=== PATIENT | female | born 1990 | race Caucasian/White ===

== ENCOUNTER → 2017-03-20 | Outpatient (CLI) | payer BC ==
--- NOTE | 2017-03-20 14:51 | MM ---
Reason for exam: screening (asymptomatic). Baseline mammogram. History: Patient is nulliparous. Family history of breast cancer in mother at age 52. Took hormonal contraceptives beginning at age 17. Physical Findings: Nurse did not find any significant physical abnormalities on exam. MG Screening Mammo w CAD Bilateral CC and MLO view(s) were taken. The breast tissue is heterogeneously dense. This may lower the sensitivity of mammography. Superior central right focal asymmetry within the right breast is seen. These results were verbally communicated with the patient and result sheet given to the patient on 03/20/17. ASSESSMENT: Incomplete: need additional imaging evaluation, BI-RAD 0 RECOMMENDATION: Special view mammogram of the right breast. If lesion persists on supplemental views, image directed ultrasound is recommended. [facility] will attempt to contact patient to return for supplemental views and ultrasound if indicated. [facility]
--- NOTE | 2017-03-20 14:53 | MM ---
Reason for exam: additional evaluation requested from abnormal screening. History: Patient is nulliparous. Family history of breast cancer in mother at age 52. Took hormonal contraceptives beginning at age 17. Physical Findings: Breast exam preformed at baseline screening. MG Work Up Mamm w CAD RT Spot compression MLO and spot compression CC view(s) were taken of the right breast. Subtle focal asymmetry appears as fibroglandular tissue on additional imaging. These results were verbally communicated with the patient and result sheet given to the patient on 03/20/17. ASSESSMENT: Benign, BI-RAD 2 RECOMMENDATION: Routine screening mammogram of both breasts at age 38. (or sooner if clinically indicated) MTDD
== END | disposition home or self-care (01) ==
LOC: RADMAMWWP 13:05
PROVIDERS: ATTEND Family Medicine
DX: Z12.31 Encounter for screening mammogram for malignant neoplasm of breast (principal); R92.8 Other abnormal and inconclusive findings on diagnostic imaging of breast; Z80.3 Family history of malignant neoplasm of breast
CPT/HCPCS: G0202; G0206

== ENCOUNTER → 2019-01-18 | Outpatient (CLI) | payer BC | END | disposition home or self-care (01) | LOC: LABWHC1 08:44 | PROVIDERS: ATTEND Obstetrics & Gynecology | DX: Z34.01 Encounter for supervision of normal first pregnancy, first trimester (principal) | CPT/HCPCS: 36415; 84702; 86850; 86900; 86901 ==

== ENCOUNTER → 2019-05-28 | Outpatient (CLI) | payer BC ==
[2019-05-28 09:25] LABS: HCT 33.6 % (34.0-46.0); HGB 11.5 gm/dL (11.4-16.0); MCH 31.9 pg (25.0-35.0); MCHC 34.2 g/dL (31.0-37.0); MCV 93.5 fL (80.0-100.0); Mean Platelet Volume 7.5; Platelet Count 252 k/uL (150-450); RBC 3.59 m/uL (3.80-5.40); RDW 12.4 % (11.5-15.5); WBC 9.7 k/uL (3.8-10.6)
== END | disposition home or self-care (01) ==
LOC: LABWHC1 08:02
PROVIDERS: ATTEND Obstetrics & Gynecology
DX: Z34.02 Encounter for supervision of normal first pregnancy, second trimester (principal)
CPT/HCPCS: 36415; 82950; 85027

== ENCOUNTER 2019-08-23 19:34 | Inpatient (IN) | payer BC ==
[2019-08-23] MEDS ORDERED: TERBUTALINE 1 MG/ML VIAL SQ PRN (20:32)
[2019-08-23] MEDS ORDERED: METHYLERGONOVINE 0.2 MG/ML 1 ML AMP IM PRN (20:32)
[2019-08-23] MEDS ORDERED: CARBOPROST TROMETHAMINE 250 MCG/ML 1 ML AMP IM PRN (20:32)
[2019-08-23] MEDS ORDERED: OXYTOCIN 10 UNIT/ML 1 ML VIAL IM PRN (20:32)
[2019-08-23] MEDS ORDERED: LIDOCAINE 0.5% (PF) 5 MG/ML (50 ML SDV) SQ PRN (20:32)
--- NOTE | 2019-08-23 20:41 | P.HPOB ---
History of Present Illness H&P Date: 08/23/19 Chief Complaint: Leaking of fluid This patient is a pleasant 29-year-old 1 para 0 female estimated date of confinement 09/09/2019 estimated gestational age 37-4/7 weeks who presents to labor and delivery with complaint a gush of fluid at approximately 12:30 this morning. Patient's leaking throughout this afternoon and early evening contacted me complaining of leaking requested she come to labor and delivery for evaluation and she is found to be grossly ruptured. care has been uncomplicated. Review of Systems Genitourinary: Reports Menstruation: Reports amenorrhea Past Medical History Past Medical History: No Reported History History of Any Multi-Drug Resistant Organisms: None Reported Past Surgical History: No Surgical Hx Reported Past Anesthesia/Blood Transfusion Reactions: No Reported Reaction Past Psychological History: No Psychological Hx Reported Smoking Status: Never smoker Past Alcohol Use History: None Reported Past Drug Use History: None Reported Medications and Allergies Allergies Allergy/AdvReac Type Severity Reaction Status Date / Time blue dye Allergy Severe Anaphylaxis Verified 08/23/19 20:02 Exam Intake and Output 08/23/19 08/23/19 08/23/19 06:59 14:59 22:59 Other: Weight 84.822 kg - OBG Physical Exam Abdomen: bowel sounds normal, no diffuse tenderness, no bruit present, no guarding noted, no hepatomegaly, no splenomegaly, no mass Vulva: both: normal Vagina: no discharge Cervix: Cervix is 2 cm dilated 50% effaced -2 station with gross rupture membranes Uterus: enlarged (Fundal height is consistent with gestational age) Results blood work shows she is O positive, rubella immune, RPR nonreactive, hepatitis B negative, group B strep was negative, most recent ultrasound showed estimated weight to be 5 lbs. 9 oz. vertex presentation (August 05) Assessment and Plan Assessment: This is a pleasant 29-year-old 1 para 0 female estimated gestational age 37-4/7 weeks who presents to labor and delivery with leaking of fluid since approximately 12:30 earlier today. Patient's found to be grossly ruptured. Patient not having any contractions therefore we will augment/induced with Pitocin per protocol. At this point we anticipate vaginal delivery. (1) 37 weeks gestation of Current Visit: Yes Status: Acute Code(s): Z3A.37 - 37 WEEKS GESTATION OF SNOMED Code(s): 83875049 (2) Premature rupture of membranes Current Visit: Yes Status: Acute Code(s): O42.90 - SIS ROM, 7TH0 BETW RUPT & ONST LABR, UNSP WEEKS OF GEST SNOMED Code(s): 92623779
[2019-08-23] MEDS ORDERED: OXYTOCIN 30 UNITS/500 ML NS 30 UNIT in SALINE 1 500ML.BAG IV SCH (20:45)
[2019-08-23] MEDS ORDERED: LACTATED RINGERS 1,000 ML IV SCH (20:45)
[2019-08-23 23:31] LABS: Basophils # (A) 0.1 k/uL (0-0.2); Basophils % (A) 0 %; Eosinophils % (A) 0 %; HCT 35.8 % (34.0-46.0); HGB 11.9 gm/dL (11.4-16.0); Lymphocytes # (A) 2.2 k/uL (1.0-4.8); Lymphocytes % (A) 16 %; MCH 30.6 pg (25.0-35.0); MCHC 33.2 g/dL (31.0-37.0); Mean Platelet Volume 8.7; Monocytes # (A) 0.5 k/uL (0-1.0); Monocytes % (A) 3 %; Neutrophils # (A) 10.6 k/uL (1.3-7.7); Neutrophils % (A) 79 %; Platelet Count 293 k/uL (150-450); RBC 3.89 m/uL (3.80-5.40); RDW 12.8 % (11.5-15.5); WBC 13.4 k/uL (3.8-10.6)
[2019-08-23] MEDS ORDERED: SODIUM CHLORIDE 0.9% 100 ML BAG ONE (23:39)
[2019-08-23] MEDS ORDERED: fentaNYL (PF) 50 MCG/ML 5 ML AMP ONE (23:39)
[2019-08-23] MEDS ORDERED: ROPIVACAINE 5MG/ML 20ML VIAL ONE (23:39)
[2019-08-24] MEDS ORDERED: AMPICILLIN 2,000 MG in SODIUM CHLORIDE 0.9% 100 ML IVPB ONE (01:00)
[2019-08-24] MEDS ORDERED: CITRIC ACID-SODIUM CITRATE 15 ML CUP PO ONE (01:31)
[2019-08-24] MEDS ORDERED: KETOROLAC 30 MG/ML 1 ML VIAL ONE (01:38)
[2019-08-24] MEDS ORDERED: MORPHINE SULFATE (PF) 0.3 MG/0.3 ML SYR ONE (01:38)
[2019-08-24] MEDS ORDERED: OXYTOCIN 10 UNIT/ML 1 ML VIAL ONE (01:38)
[2019-08-24] MEDS ORDERED: ONDANSETRON 4 MG/2 ML VIAL ONE (01:38)
[2019-08-24] MEDS ORDERED: ceFAZolin 1,000 MG VIAL ONE (01:38)
--- NOTE | 2019-08-24 02:31 | P.OP ---
Date of Procedure: 08/24/19 Preoperative Diagnosis: #1: 37-4/7 week . #2: Premature rupture membranes. #3: Nonreassuring heart tones remote from delivery Postoperative Diagnosis: #1: Same. #2: Clinically partial abruption Procedure(s) Performed: Emergent low transverse section Anesthesia: spinal Surgeon: Riki Renteria Farmhand #1: Josiane Broderick Estimated Blood Loss (ml): 600 Pathology: other (Placenta) Condition: stable Disposition: floor Indications for Procedure: Please see dictated H&P for intimate details of this patient's admission. Brief summary this is a pleasant 29-year-old 1 para 0 female 37-4/7 weeks gestation admitted to labor and delivery with spontaneous rupture membranes earlier today. On admission patient is 2 cm dilated has Pitocin augmentation of labor. Patient begins having some repetitive late decelerations and some vaginal bleeding at this time is felt that we needed to proceed with immediate delivery by section. Patient does understand the surgery and risks and risks of infection, bleeding, possible injury bowel, bladder, vessels, and/or other organs. All the patient's questions are answered written consent is obtained Operative Findings: A vigorous viable male Apgars 9 and 9 delivery time is 0153 hours. Nuchal cord 1. There were small clots in the uterus consistent with probable partial abruption Description of Procedure: This patient has a Gurrola catheter tip placed to straight drain. She is subsequently taken to the operating room where the epidural is dosed up for sufficient level of surgery. With an adequate level of anesthesia she has abdominal prep and drape. Scalpels taken Pfannenstiel skin incision is made. A second scalpel is taken down the fascia the fascia scored with a knife. Fascial incision extended bilaterally using the Hoff scissors. Fascia is dissected off the rectus muscles sharply. Rectus muscles are the peritoneum identified and entered sharply. Bladder blade is then placed. Bladder peritoneum was then taken down sharply. Scalpels and taken low transverse uterine incision is made. Using a hemostat I enter the uterine cavity bluntly. Uterine incision extended bluntly. 's head is then guided through the incision with fundal pressure. Mouth and nares are bulb suctioned there is a loose nuchal cord which is reduced. With fundal pressure we then have deliver the rest this 's body. This is a vigorous viable male Apgars are 9 and 9 delivery time is 0153 hours. After delivery of the the umbilical cord is doubly clamped and cut appears to be trivascular. The is handed off to the nurses in attendance. The placenta is then manually extracted intact. After the placenta is removed, there several's approximately quarter- sized dark clots consistent with probable partial abruption. Uterus is free of all debris. Uterus is externalized. Uterine incision then closed using 0 Vicryl running locked fashion 2 layers excellent hemostasis is noted. Bladder peritoneum was then reapproximated using a 3-0 Vicryl. Excess fluid is removed from the abdomen and pelvis. Uterus placed back in the abdomen. Parietal peritoneum closed using a 3-0 Vicryl running fashion. Rectus muscles were occiput using 0 Vicryl interrupted fashion. Fascia is then closed using 0 PDS. Fascial incision is intact and hemostatic. Subcutaneous tissues and closed using 3-0 Vicryl. Skin is and closed using jennifer. All counts are correct 3. There are no complications. Infant and mother are taken of birthing suite in satisfactory condition.
[2019-08-24] MEDS ORDERED: diphenhydrAMINE 25 MG CAP PO PRN (02:32)
[2019-08-24] MEDS ORDERED: LANOLIN CREAM 5 GM TUBE TOPICAL PRN (02:32)
[2019-08-24] MEDS ORDERED: ONDANSETRON 4 MG/2 ML VIAL IVP PRN (02:32)
[2019-08-24] MEDS ORDERED: diphenhydrAMINE 50 MG/ML 1 ML VIAL IVP PRN (02:32)
[2019-08-24] MEDS ORDERED: HYDROcodone/APAP 5-325MG 1 EACH TAB PO PRN (02:32)
[2019-08-24] MEDS ORDERED: SIMETHICONE 80 MG CHEWABLE PO PRN (02:32)
[2019-08-24] MEDS ORDERED: METOCLOPRAMIDE 5 MG/ML 2 ML VIAL IVP PRN (02:32)
[2019-08-24] MEDS ORDERED: NALOXONE 0.4 MG/ML 1 ML VIAL IV PRN (02:32)
[2019-08-24] MEDS ORDERED: ZOLPIDEM 5 MG TAB PO PRN (02:32)
--- NOTE | 2019-08-24 02:36 | P.MSEPDOC ---
Presenting Problems - Arrival Data Date of Arrival on Unit: 08/23/19 Time of Arrival on Unit: 19:45 Mode of Transport: Ambulatory - Complaint OB-Reason for Admission/Chief Complaint: Rule Out SROM Comment: Pt walked in with complaints of rupture of membranes. Medical History - Information : 1 Para: 0 Term: 0 : 0 Abortions: Spontaneous or Elective: 0 Number of Living Children: 0 - Gestational Age Gestational Age by HIEU (wks/days): 37 Weeks and 4 Days Review of Systems - Review of Systems Constitutional: No problems Breast: No problems ENT: No problems Cardiovascular: No problems Respiratory: No problems Gastrointestinal: No problems Genitourinary: No problems Musculoskeletal: No problems Neurological: No problems Skin: No problems Vital Signs - Temperature Temperature: 98.6 F Temperature Source: Oral - Pulse Pulse Oximetery Pulse Rate: 80 Pulse Assessment Method: Pulse Oximetry - Respirations Respiratory Rate: 18 Oxygen Delivery Method: Room Air - Blood Pressure Right Arm Blood Pressure: 119/88 Blood Pressure Mean: 98 Blood Pressure Source: Automatic Cuff Medical Screen Scoring (Pre) - Cervical Exam Dilation: 1-3 cm = 1 Effacement: More than 50% = 2 Membranes: Ruptured = 3 - Uterine Contractions Frequency: N/A Duration: N/A Intensity: N/A - Maternal Vital Signs Maternal Temperature: N/A Maternal Blood Pressure: N/A Signs of Preeclampsia: N/A Maternal Respirations: N/A - Maternal Trauma Maternal Trauma: N/A - Assessment - Baby A Baseline FHR: 135 Heart Rate - NICHD Category: Category I (Normal) = 0 NST: Reactive Position: N/A Station: N/A - Total Score - Baby A Total Score - Baby A: 6 - Total Score - Baby B Total Score - Baby B: 6 - Total Score - Baby C Total Score - Baby C: 6 - Level of Risk - Baby A Level of Risk - Baby A: Medium (6-9) - Level of Risk - Baby B Level of Risk - Baby B: Medium (6-9) - Level of Risk - Baby C Level of Risk - Baby C: Medium (6-9) Physician Notification (Pre) - Physician Notified Physician Notified Date: 08/23/19 Physician Notified Time: 20:00 New Order Received: Yes - Notification Comment Comment: Orders to admit pt for labor and begin pitocin. Disposition - Disposition OB Disposition: Admit Transferred to:: suite 9 I agree with the RN Medical Screening Exam: Yes Risk & Benefit of care provided described in d/c instruction: Yes Diagnosis: ENCOUNTER FOR FULL-TERM UNCOMPLICATED DELIVERY
[2019-08-24] MEDS ORDERED: LACTATED RINGERS 1,000 ML IV SCH (02:45)
[2019-08-24] MEDS ORDERED: OXYTOCIN 20 UNITS/1000 ML NS 1,000 ML IV SCH (02:45)
[2019-08-24] MEDS ORDERED: MORPHINE SULFATE 2 MG/ML SYRINGE IVP PRN (02:51)
[2019-08-24] MEDS ORDERED: AMPICILLIN 1,000 MG in SODIUM CHLORIDE 0.9% 50 ML IVPB SCH (05:00)
[2019-08-24] MEDS: KETOROLAC 30 MG/ML 1 ML VIAL IVP PRN ×3 (06:30→22:52)
--- NOTE | 2019-08-24 07:52 | P.PN ---
Progress Note - Text Anesthesia POD 1 0720. Patient is status post section under spinal anesthesia with intra-thecal preservative free morphine 300 g. Mild pruritus, excellent post-op analgesia, and no headache or other complication.
[2019-08-24] MEDS: SENNOSIDES-DOCUSATE SODIUM 1 EACH TAB PO SCH ×2 (08:48→21:01)
[2019-08-25] MEDS: IBUPROFEN 600 MG TAB PO PRN ×3 (06:09→20:38)
[2019-08-25 07:59] LABS: Basophils % (A) 0 %; Eosinophils % (A) 0 %; HCT 29.8 % (34.0-46.0); HGB 10.1 gm/dL (11.4-16.0); Lymphocytes # (A) 1.3 k/uL (1.0-4.8); Lymphocytes % (A) 16 %; MCH 30.9 pg (25.0-35.0); MCHC 33.8 g/dL (31.0-37.0); MCV 91.4 fL (80.0-100.0); Mean Platelet Volume 8.4; Monocytes # (A) 0.4 k/uL (0-1.0); Monocytes % (A) 5 %; Neutrophils # (A) 6.5 k/uL (1.3-7.7); Neutrophils % (A) 78 %; Platelet Count 246 k/uL (150-450); RBC 3.26 m/uL (3.80-5.40); RDW 12.7 % (11.5-15.5); WBC 8.4 k/uL (3.8-10.6)
--- NOTE | 2019-08-25 09:03 | P.PNOBGPC ---
Subjective - Subjective Principal diagnosis: Status post primary section postoperative day #1 Interval history: Patient is doing well. She is passing some flatus but no bowel movement yet. She is urinating without difficulty. Her pain is fairly well controlled. Baby did get transfer to level I nursery this morning due to some jaundice issues. Patient reports: Reports appetite normal, Reports voiding normally, Reports pain well controlled, Reports ambulating normally [place]: other (In level I nursery) Objective - Vital Signs Latest vital signs: Vital Signs Temp Pulse Resp BP Pulse Ox 08/25/19 08:00 98.2 F 102 H 16 123/70 08/24/19 23:55 98.2 F 94 16 121/67 98 08/24/19 22:00 16 08/24/19 20:00 98.2 F 89 16 122/76 98 08/24/19 19:00 16 99 08/24/19 17:00 16 99 08/24/19 16:00 98 F 87 18 117/68 99 08/24/19 15:00 16 99 08/24/19 13:00 16 98 08/24/19 12:00 98.4 F 83 16 115/70 98 08/24/19 11:00 16 98 Intake and Output 08/24/19 08/25/19 08/25/19 22:59 06:59 14:59 Intake Total 100 Output Total 450 525 Balance -350 -525 Intake: Intake, IV Titration 100 Amount ceFAZolin 2 gm In Sodium 100 Chloride 0.9% 50 ml @ 100 mls/hr IVPB Q8H [facility] Rx#: [id number] Output: Urine 450 525 Other: # Voids 1 - Exam Extremities: Present: normal. Absent: tenderness, edema Abdomen: Present: normal appearance, soft (Positive bowel sounds 4). Absent: distention, tenderness Incision: Present: normal, dry, intact. Absent: erythematous Uterus: Present: normal, firm. Absent: tenderness - Labs Labs: Abnormal Lab Results - Last 24 Hours (Table) 08/25/19 Range/Units 06:52 RBC 3.26 L (3.80-5.40) m/uL Hgb 10.1 L (11.4-16.0) gm/dL Hct 29.8 L (34.0-46.0) % Assessment and Plan Assessment: Status post primary section postoperative day #1 Plan: Will continue with postoperative and care. Encouraged ambulation. Advance diet as tolerated.
[2019-08-25] MEDS: ACETAMINOPHEN TAB 325 MG TAB PO PRN (15:58)
[2019-08-25] MEDS: SENNOSIDES-DOCUSATE SODIUM 1 EACH TAB PO SCH ×2 (18:43→20:40)
[2019-08-26] MEDS: ACETAMINOPHEN TAB 325 MG TAB PO PRN ×3 (00:57→19:45)
[2019-08-26] MEDS: IBUPROFEN 600 MG TAB PO PRN ×2 (06:47→15:48)
[2019-08-26] MEDS: SENNOSIDES-DOCUSATE SODIUM 1 EACH TAB PO SCH ×2 (07:37→20:16)
[2019-08-27] MEDS: IBUPROFEN 600 MG TAB PO PRN ×3 (00:56→16:16)
[2019-08-27] MEDS: ACETAMINOPHEN TAB 325 MG TAB PO PRN (06:12)
[2019-08-27 08:39] VITALS: RESP 16
[2019-08-27] MEDS: SENNOSIDES-DOCUSATE SODIUM 1 EACH TAB PO SCH (15:29)
[2019-08-27 17:07] VITALS: BP 130/69; PULSE 77; TEMP 98
--- NOTE | 2019-08-28 08:01 | P.PNOBGPC ---
Subjective - Subjective Principal diagnosis: Status post primary low transverse postop day #2 Interval history: Patient seen and examined. Denies nausea, vomiting, chest pain, shortness of breath or calf pain. Her pain is well-controlled, she is passing flatus and tolerating regular diet. Her baby was in the nursery with jaundice and she will likely stay in the hospital until tomorrow for this reason. Patient reports: Reports appetite normal, Reports voiding normally, Reports pain well controlled, Reports ambulating normally Objective - Vital Signs Latest vital signs: Vital Signs Temp Pulse Resp BP 08/27/19 16:00 98.0 F 77 16 130/69 08/27/19 08:38 97.8 F 86 16 109/68 - Exam Lungs: bilateral: normal Chest: Normal S1, Normal S2 Extremities: Present: normal Abdomen: Present: normal appearance, soft. Absent: distention, tenderness Incision: Present: normal, dry, intact Uterus: Present: normal, firm Assessment and Plan (1) Status post primary low transverse section Status: Acute Code(s): Z98.891 - HISTORY OF UTERINE SCAR FROM PREVIOUS SURGERY SNOMED Code(s): 607165950 Plan: 1. Increase ambulation 2. Continue postoperative care
--- NOTE | 2019-08-28 08:02 | P.DS ---
Providers Date of admission: 08/23/19 20:09 Expected date of discharge: 08/27/19 Attending physician: Riki Renteria Primary care physician: Stated None - Discharge Diagnosis(es) (1) Status post primary low transverse section Status: Acute Hospital Course: Patient presented for spontaneous rupture of membranes. She underwent a primary low transverse , please dictation a section for details on this. Postoperatively her course was uncomplicated. She is ambulating voiding without difficulty, passing flatus, tolerating regular diet. She'll be discharg ed home postoperative day #3 in stable condition to follow-up with Dr. Renteria in one week. Patient Condition at Discharge: Good Plan - Discharge Summary New Discharge Prescriptions: New Ibuprofen [Motrin] 600 mg PO Q6HR PRN #40 tab PRN Reason: Mild Pain Or Fever >= 100.5 HYDROcodone/APAP 5-325MG [[place] 5-325] 1 each PO Q4HR PRN #18 tab PRN Reason: Moderate Pain Discharge Medication List HYDROcodone/APAP 5-325MG [[place] 5-325] 1 each PO Q4HR PRN #18 tab 08/24/19 [Rx] Ibuprofen [Motrin] 600 mg PO Q6HR PRN #40 tab 08/24/19 [Rx] Follow up Appointment(s)/Referral(s): Riki Renteria MD [STAFF PHYSICIAN] - 6 Weeks (Also please see me in 1 week for an incision check ) Patient Instructions/Handouts: (DC) Activity/Diet/Wound Care/Special Instructions: No heavy lifting or strenuous activity for 6 weeks. Please call if any fever, chills, excessive vaginal bleeding, and/or abdominal pain. Discharge Disposition: HOME SELF-CARE
== END 2019-08-27 16:39 | disposition home or self-care (01) | DRG 786 ==
LOC: FBPOP 19:34 → 4FBP 20:09
PROVIDERS: ADMIT Obstetrics & Gynecology; ATTEND Obstetrics & Gynecology
PROC: 3E033VJ Introduction of Other Hormone into Peripheral Vein, Percutaneous Approach (ICD-10-PCS; 2019-08-23)
PROC: 10D00Z1 Extraction of Products of Conception, Low, Open Approach (ICD-10-PCS; principal; 2019-08-24 01:40)
DX: O42.92 Full-term premature rupture of membranes, unspecified as to length of time between rupture and onset of labor (principal); O45.93 Premature separation of placenta, unspecified, third trimester; O69.81X0 Labor and delivery complicated by cord around neck, without compression, not applicable or unspecified; O76 Abnormality in fetal heart rate and rhythm complicating labor and delivery; Z37.0 Single live birth; Z3A.37 37 weeks gestation of pregnancy
CPT/HCPCS: 85025; 86850; 86900; 86901; 88307

== ENCOUNTER → 2021-09-20 | Outpatient (CLI) | payer OTHER ==
[2021-09-20 14:54] LABS: Basophils # (A) 0.04 X 10*3/uL (0.00-0.10); Basophils % (A) 0.6 %; Eosinophils # (A) 0.05 X 10*3/uL (0.04-0.35); Eosinophils % (A) 0.7 %; HCT 36.4 % (37.2-46.3); HGB 12.5 g/dL (12.0-15.0); Immature Grans, Automated 0.3 %; Lymphocytes # (A) 2.04 X 10*3/uL (0.90-5.00); Lymphocytes % (A) 29.3 %; MCH 30.6 pg (27.0-32.0); MCHC 34.3 g/dL (32.0-37.0); MCV 89.2 fL (80.0-97.0); Mean Platelet Volume 10.9 fL (9.5-12.2); Monocytes # (A) 0.61 X 10*3/uL (0.20-1.00); Monocytes % (A) 8.8 %; NRBC Per 100 WBC 0 /100 WBCS (0.0-0.0); Neutrophils % (A) 60.3 %; Platelet Count 278 X 10*3/uL (140-440); RBC 4.08 X 10*6/uL (4.10-5.20); RDW 12.5 % (11.5-14.5); WBC 6.96 X 10*3/uL (4.50-10.00)
[2021-09-20 16:09] LABS: African American GFR (CKD) 135.5 (60.0-200.0); Albumin 4.7 g/dL (3.8-4.9); Albumin/Globulin Ratio 1.98 (1.60-3.17); Anion Gap 12.6 mmol/L (10.00-18.00); BUN/Creat Ratio 13.59 Ratio (12.00-20.00); Blood Urea Nitrogen 8.8 mg/dL (9.0-27.0); C Reactive Protein 0.4 mg/dL (0.00-0.80); Calcium 9.5 mg/dL (8.7-10.3); Carbon Dioxide 23.3 mmol/L (20.0-27.5); Globulin 2.4 g/dL (1.6-3.3); Non-African American GFR(CKD) 116.9 (60.0-200.0); Potassium 4.2 mmol/L (3.5-5.5); Total Bilirubin 0.7 mg/dL (0.30-1.20); Total Protein 7.1 g/dL (6.2-8.2)
[2021-09-20 16:31] LABS: Erythrocyte Sedimentation Rate 7 mm/Hr (0-20)
== END | disposition home or self-care (01) ==
LOC: LABWHC1 10:32
PROVIDERS: ATTEND Internal Medicine
DX: L50.9 Urticaria, unspecified (principal)
CPT/HCPCS: 36415; 80053; 84443; 85025; 85652; 86038; 86140; 86160

== ENCOUNTER 2021-10-28 20:59 | Observation (INO) | payer OTHER ==
[2021-10-28] MEDS ORDERED: PANTOPRAZOLE 40 MG/10 ML VIAL IVP STA (22:04)
[2021-10-28] MEDS ORDERED: SODIUM CHLORIDE 0.9% 1,000 ML IV STA ×2 (22:04)
[2021-10-28] MEDS ORDERED: ONDANSETRON 4 MG/2 ML VIAL IVP STA (22:04)
[2021-10-28] MEDS ORDERED: SODIUM CHLORIDE 0.9% 500 ML 500 ML IV STA (22:04)
[2021-10-28 22:33] LABS: Basophils # (A) 0.1 k/uL (0-0.2); Basophils % (A) 1 %; Eosinophils # (A) 0.2 k/uL (0-0.7); Eosinophils % (A) 2 %; HCT 42.4 % (34.0-46.0); HGB 15.3 gm/dL (11.4-16.0); Hyperchromasia Slight; Lymphocytes # (A) 2.3 k/uL (1.0-4.8); Lymphocytes % (A) 22 %; MCH 31.1 pg (25.0-35.0); MCV 86.2 fL (80.0-100.0); Mean Platelet Volume 7.7; Monocytes # (A) 0.7 k/uL (0-1.0); Monocytes % (A) 7 %; Neutrophils # (A) 6.8 k/uL (1.3-7.7); Neutrophils % (A) 66 %; Platelet Count 355 k/uL (150-450); RBC 4.91 m/uL (3.80-5.40); RDW 11.9 % (11.5-15.5); WBC 10.4 k/uL (3.8-10.6)
--- NOTE | 2021-10-28 22:42 | ED ---
Nausea/Vomiting/Diarrhea HPI - General Chief complaint: Nausea/Vomiting/Diarrhea Stated complaint: Vomiting, Nausea Time Seen by Provider: 10/28/21 22:03 Source: patient, RN notes reviewed, old records reviewed Mode of arrival: ambulatory Limitations: no limitations - History of Present Illness Initial comments: This is a 31-year-old female to the ER for evaluation. Patient presents today for evaluation regards to significant nausea vomiting first 5 days. Persistent. Patient was also has nausea and vomiting but has been persistent for 5 days she's also having a epigastric and right upper quadrant abdominal pain no significant other medical history takes no medications. Patient is without fever she did also suffer from diarrhea feels lightheaded dizzy and weak. Nothing is improving the symptoms, nothing also appears make him worse. Patient is unable to eat or drink MD complaint: nausea, vomiting, diarrhea, abdominal pain -: hour(s) Description of Vomiting: food contents Description of Diarrhea: water Associated Abdominal Pain: Yes Location: diffuse Radiation: none Severity: moderate Severity scale (1-10): 4 Quality: cramping, stabbing Consistency: constant Improves with: none Worsens with: none Associated Symptoms: loss of appetite, nausea/vomiting - Related Data Home Medications Medication Instructions Recorded Confirmed No Known Home Medications 10/28/21 10/28/21 Allergies Allergy/AdvReac Type Severity Reaction Status Date / Time No Known Allergies Allergy Verified 10/28/21 22:18 Review of Systems ROS Statement: Those systems with pertinent positive or pertinent negative responses have been documented in the HPI. ROS Other: All systems not noted in ROS Statement are negative. Past Medical History Past Medical History: No Reported History History of Any Multi-Drug Resistant Organisms: None Reported Past Surgical History: No Surgical Hx Reported Past Anesthesia/Blood Transfusion Reactions: No Reported Reaction Past Psychological History: No Psychological Hx Reported Smoking Status: Current every day smoker Past Alcohol Use History: Occasional Past Drug Use History: Marijuana - Past Family History Father History Unknown: Yes Family Medical History: Diabetes Mellitus Mother History Unknown: Yes Family Medical History: Cancer Additional Family Medical History / Comment(s): from breast cancer General Exam Limitations: no limitations General appearance: alert, in no apparent distress, anxious Head exam: Present: atraumatic, normocephalic, normal inspection Eye exam: Present: normal appearance, PERRL, EOMI. Absent: scleral icterus, conjunctival injection, periorbital swelling ENT exam: Present: normal exam, mucous membranes dry Neck exam: Present: normal inspection. Absent: tenderness, meningismus, lymphadenopathy Respiratory exam: Present: normal lung sounds bilaterally. Absent: respiratory distress, wheezes, rales, rhonchi, stridor Cardiovascular Exam: Present: normal rhythm, tachycardia, normal heart sounds. Absent: systolic murmur, diastolic murmur, rubs, gallop, clicks GI/Abdominal exam: Present: soft, normal bowel sounds. Absent: distended, tenderness, guarding, rebound, rigid Extremities exam: Present: normal inspection, full ROM, normal capillary refill. Absent: tenderness, pedal edema, joint swelling, calf tenderness Back exam: Present: normal inspection Neurological exam: Present: alert, oriented X3, CN II-XII intact Psychiatric exam: Present: normal affect, normal mood Skin exam: Present: warm, dry, intact, normal color. Absent: rash Course Vital Signs 10/28/21 10/28/21 21:05 22:33 Temperature 98.1 F Pulse Rate 124 H 92 Respiratory 20 Rate Blood Pressure 123/78 O2 Sat by Pulse 96 100 Oximetry - Reevaluation(s) Reevaluation #1: 10/28/21 22:46 Medical record is reviewed Reevaluation #2: 10/28/21 22:46 Patient continue to puking here in the ER Reevaluation #3: 10/29/21 00:53 Patient has no real improvement here in the emergency department Reevaluation #4: 10/29/21 00:54 Patient informed results and questions are answered - Consultations Consultation #1: spoke w sound and is ok for admission Medical Decision Making - Medical Decision Making 31 female with a mild pancreatitis persistent nausea vomiting 5 days, also color negative. Patient will be admitted for resuscitation symptom management - Lab Data Result diagrams: 10/28/21 22:20 10/28/21 22:20 Lab Results 10/28/21 10/28/21 10/28/21 Range/Units 22:20 22:20 22:20 WBC 10.4 (3.8-10.6) k/uL RBC 4.91 (3.80-5.40) m/uL Hgb 15.3 (11.4-16.0) gm/dL Hct 42.4 (34.0-46.0) % MCV 86.2 (80.0-100.0) fL MCH 31.1 (25.0-35.0) pg MCHC 36.0 (31.0-37.0) g/dL RDW 11.9 (11.5-15.5) % Plt Count 355 (150-450) k/uL MPV 7.7 Neutrophils % 66 % Lymphocytes % 22 % Monocytes % 7 % Eosinophils % 2 % Basophils % 1 % Neutrophils # 6.8 (1.3-7.7) k/uL Lymphocytes # 2.3 (1.0-4.8) k/uL Monocytes # 0.7 (0-1.0) k/uL Eosinophils # 0.2 (0-0.7) k/uL Basophils # 0.1 (0-0.2) k/uL Hyperchromasia Slight Sodium (137-145) mmol/L Potassium (3.5-5.1) mmol/L Chloride (98-107) mmol/L Carbon Dioxide (22-30) mmol/L Anion Gap mmol/L BUN (7-17) mg/dL Creatinine (0.52-1.04) mg/dL Est GFR (CKD-EPI)AfAm (>60 ml/min/1.73 sqM) Est GFR (CKD-EPI)NonAf (>60 ml/min/1.73 sqM) Glucose (74-99) mg/dL Plasma Lactic Acid [place] (0.7-2.0) mmol/L Calcium (8.4-10.2) mg/dL Phosphorus (2.5-4.5) mg/dL Magnesium (1.6-2.3) mg/dL Total Bilirubin (0.2-1.3) mg/dL AST (14-36) U/L ALT (4-34) U/L Alkaline Phosphatase (38-126) U/L Total Protein (6.3-8.2) g/dL Albumin (3.5-5.0) g/dL Amylase (30-110) U/L Lipase (23-300) U/L Urine Color Yellow Urine Appearance Cloudy H (Clear) Urine pH 6.0 (5.0-8.0) Ur Specific [place] 1.026 (1.001-1.035) Urine Protein Trace H (Negative) Urine Glucose (UA) Negative (Negative) Urine Ketones 4+ H (Negative) Urine Blood Negative (Negative) Urine Nitrite Negative (Negative) Urine Bilirubin Negative (Negative) Urine Urobilinogen 2.0 (<2.0) mg/dL Ur Leukocyte Esterase Negative (Negative) Urine RBC 3 (0-5) /hpf Urine WBC 4 (0-5) /hpf Ur Squamous Epith Cells 26 H (0-4) /hpf Urine Bacteria Rare H (None) /hpf Urine Mucus Moderate H (None) /hpf Urine HCG, Qual Not Detected (Not Detectd) 10/28/21 10/28/21 Range/Units 22:20 22:20 WBC (3.8-10.6) k/uL RBC (3.80-5.40) m/uL Hgb (11.4-16.0) gm/dL Hct (34.0-46.0) % MCV (80.0-100.0) fL MCH (25.0-35.0) pg MCHC (31.0-37.0) g/dL RDW (11.5-15.5) % Plt Count (150-450) k/uL MPV Neutrophils % % Lymphocytes % % Monocytes % % Eosinophils % % Basophils % % Neutrophils # (1.3-7.7) k/uL Lymphocytes # (1.0-4.8) k/uL Monocytes # (0-1.0) k/uL Eosinophils # (0-0.7) k/uL Basophils # (0-0.2) k/uL Hyperchromasia Sodium 134 L (137-145) mmol/L Potassium 3.4 L (3.5-5.1) mmol/L Chloride 96 L (98-107) mmol/L Carbon Dioxide 23 (22-30) mmol/L Anion Gap 15 mmol/L BUN 13 (7-17) mg/dL Creatinine 0.64 (0.52-1.04) mg/dL Est GFR (CKD-EPI)AfAm >90 (>60 ml/min/1.73 sqM) Est GFR (CKD-EPI)NonAf >90 (>60 ml/min/1.73 sqM) Glucose 107 H (74-99) mg/dL Plasma Lactic Acid [place] 1.0 (0.7-2.0) mmol/L Calcium 9.5 (8.4-10.2) mg/dL Phosphorus 3.1 (2.5-4.5) mg/dL Magnesium 2.2 (1.6-2.3) mg/dL Total Bilirubin 1.7 H (0.2-1.3) mg/dL AST 19 (14-36) U/L ALT 15 (4-34) U/L Alkaline Phosphatase 60 (38-126) U/L Total Protein 8.2 (6.3-8.2) g/dL Albumin 4.8 (3.5-5.0) g/dL Amylase 164 H (30-110) U/L Lipase 593 H (23-300) U/L Urine Color Urine Appearance (Clear) Urine pH (5.0-8.0) Ur Specific [place] (1.001-1.035) Urine Protein (Negative) Urine Glucose (UA) (Negative) Urine Ketones (Negative) Urine Blood (Negative) Urine Nitrite (Negative) Urine Bilirubin (Negative) Urine Urobilinogen (<2.0) mg/dL Ur Leukocyte Esterase (Negative) Urine RBC (0-5) /hpf Urine WBC (0-5) /hpf Ur Squamous Epith Cells (0-4) /hpf Urine Bacteria (None) /hpf Urine Mucus (None) /hpf Urine HCG, Qual (Not Detectd) - Radiology Data Radiology results: report reviewed (Ultrasound gallbladder is negative for acute disease), image reviewed Disposition Clinical Impression: Dehydration, Gastroenteritis, Nausea and vomiting, Acute pancreatitis, Hypokalemia Disposition: ADMITTED IP TO THIS [facility] Condition: Good Is patient prescribed a controlled substance at d/c from ED?: No Referrals: Blake Long MD [Primary Care Provider] - 1-2 days
[2021-10-28 22:43] LABS: Potassium 3.4 mmol/L (3.5-5.1)
[2021-10-28 22:44] LABS: ALT 15 U/L (4-34); AST 19 U/L (14-36); African American GFR (CKD) >90 (>60 ml/min/1.73 sqM); Albumin 4.8 g/dL (3.5-5.0); Alkaline Phosphatase 60 U/L (38-126); Amylase 164 U/L (30-110); Anion Gap 15 mmol/L; Blood Urea Nitrogen 13 mg/dL (7-17); Calcium 9.5 mg/dL (8.4-10.2); Carbon Dioxide 23 mmol/L (22-30); Chloride 96 mmol/L (98-107); Glucose 107 mg/dL (74-99); Lipase 593 U/L (23-300); Magnesium 2.2 mg/dL (1.6-2.3); Non-African American GFR(CKD) >90 (>60 ml/min/1.73 sqM); Phosphorus 3.1 mg/dL (2.5-4.5); Sodium 134 mmol/L (137-145); Total Bilirubin 1.7 mg/dL (0.2-1.3); Total Protein 8.2 g/dL (6.3-8.2)
[2021-10-28 23:21] LABS: Appearance,Urine Cloudy (Clear); Bacteria,Urine Rare /hpf; Bilirubin,Urine Negative (Negative); Blood,Urine Negative (Negative); Color,Urine Yellow; Glucose,Urine (UA) Negative (Negative); Ketones,Urine 4+ (Negative); Leukocyte Esterase,Urine Negative (Negative); Mucus,Urine Moderate /hpf; Nitrite,Urine Negative (Negative); Protein,Urine Trace (Negative); RBC,Urine 3 /hpf (0-5); Specific Gravity,Urine 1.026 (1.001-1.035); Squamous Epithelial Cell,Urine 26 /hpf (0-4); WBC,Urine 4 /hpf (0-5)
--- NOTE | 2021-10-29 00:05 | US ---
EXAMINATION TYPE: US gallbladder DATE OF EXAM: 10/28/2021 COMPARISON: NONE CLINICAL HISTORY: pain. Abdominal pain; patient is vomiting blood EXAM MEASUREMENTS: Liver Length: 14.0 cm Gallbladder Wall: 0.19 cm CBD: 0.39 cm Right Kidney: 10.0 x 3.9 x 4.9 cm Pancreas: wnl Liver: wnl Gallbladder: No stones seen Evidence for sonographic Fernández's sign: No CBD: wnl Right Kidney: No hydronephrosis or masses seen IMPRESSION: No gallstones or dilated ducts. No focal liver defect.
[2021-10-29] MEDS ORDERED: PROCHLORPERAZINE INJ 10 MG/2 ML VIAL IVP STA (00:20)
[2021-10-29] MEDS ORDERED: SODIUM CHLORIDE 0.9% 1,000 ML IV STA (00:24)
[2021-10-29] MEDS ORDERED: POTASSIUM BICARBONATE/CIT AC 20 MEQ TABLET.EFF PO ONE (00:24)
[2021-10-29] MEDS ORDERED: LORazepam 2 MG/ML INJ IV PRN (00:50)
[2021-10-29] MEDS ORDERED: ONDANSETRON 4 MG/2 ML VIAL IVP PRN (00:50)
[2021-10-29] MEDS ORDERED: MORPHINE SULFATE 4 MG/ML SYRINGE IV PRN (00:50)
[2021-10-29] MEDS ORDERED: NALOXONE 0.4 MG/ML 1 ML VIAL IV PRN (00:50)
[2021-10-29] MEDS: SODIUM CHLORIDE 0.9% 1,000 ML IV SCH ×2 (02:20→07:59)
--- NOTE | 2021-10-29 02:42 | P.HPIM ---
History of Present Illness H&P Date: 10/29/21 Chief Complaint: Abdominal pain, nausea vomiting 31-year-old female in no significant past medical history Patient comes in due to 5 day history of repeated nausea vomiting and diarrhea symptoms started at the same time with her initially thought this is food poisoning however symptoms persisted and got worse patient was having chills eventually today she was having blood in her vomiting for which she decided come to the hospital or started recovering and improving. She was getting dehydrated as she was unable to keep anything down and she was having dark urine. She also reports some generalized body aches he denies any upper respiratory symptoms denies any sore throat. Otherwise no recent travel no sick contact no unsanitary food or drink At this time during my interview she claims that all her symptoms have subsided and she feels 100% better Blood work in the ED overall was unremarkable showing elevated lipase and amylase. Abdominal ultrasound showed negative gallstones. Blood work also showed hypokalemia, urinalysis was dirty sample Review of Systems Pertinent positives as noted in HPI. All other systems were reviewed and are negative Past Medical History Past Medical History: No Reported History History of Any Multi-Drug Resistant Organisms: None Reported Past Surgical History: No Surgical Hx Reported Past Anesthesia/Blood Transfusion Reactions: No Reported Reaction Past Psychological History: No Psychological Hx Reported Smoking Status: Current every day smoker Past Alcohol Use History: Occasional Past Drug Use History: Marijuana - Past Family History Father History Unknown: Yes Family Medical History: Diabetes Mellitus Mother History Unknown: Yes Family Medical History: Cancer Additional Family Medical History / Comment(s): from breast cancer Medications and Allergies Home Medications Medication Instructions Recorded Confirmed Type No Known Home Medications 10/28/21 10/28/21 History Allergies Allergy/AdvReac Type Severity Reaction Status Date / Time No Known Allergies Allergy Verified 10/28/21 22:18 Physical Exam Vitals: Vital Signs Temp Pulse Resp BP Pulse Ox 10/28/21 22:33 92 100 10/28/21 21:05 98.1 F 124 H 20 123/78 96 Intake and Output 10/28/21 10/28/21 10/29/21 14:59 22:59 06:59 Other: Weight 74.843 kg Constitutional: No acute distress, conversant, pleasant Eyes: Anicteric sclerae, moist conjunctiva, Pupils equal round reactive to light ENMT: NC/AT Oropharynx clear, no erythema, or exudates Neck: Supple, FROM, no masses, or JVD No carotid bruits No thyromegaly Lungs: Clear to auscultation Clear to percussion Normal respiratory effort, no accessory muscle use Cardiovascular: Heart regular in rate and rhythm, No murmurs, gallops, or rubs No peripheral edema Abdominal: Soft Nontender, no guarding, rebound or rigidity Abdomen moving with respiration Normoactive bowel sounds No hepatomegaly, No splenomegaly No palpable mass No abdominal wall hernia noted Skin: Normal temperature, tone, texture, turgor No induration No subcutaneous nodules No rash, lesions No ulcers Extremities: No digital cyanosis No clubbing Pedal pulses intact and symmetrical Radial pulses intact and symmetrical No calf tenderness Psychiatric: Alert and oriented to person, place and time Appropriate affect fair judgement Neuro Muscles Strength 5/5 in all 4 extremities Sensation to light touch grossly present throughout Cranial nerves II-XII grossly intact No focal sensory deficits Lymphatics: no palpable cervical or supraclavicular , or inguinal lymph nodes Results CBC & Chem 7: 10/28/21 22:20 10/28/21 22:20 Labs: Abnormal Lab Results - Last 24 Hours (Table) 10/28/21 10/28/21 Range/Units 22:20 22:20 Sodium 134 L (137-145) mmol/L Potassium 3.4 L (3.5-5.1) mmol/L Chloride 96 L (98-107) mmol/L Glucose 107 H (74-99) mg/dL Total Bilirubin 1.7 H (0.2-1.3) mg/dL Amylase 164 H (30-110) U/L Lipase 593 H (23-300) U/L Urine Appearance Cloudy H (Clear) Urine Protein Trace H (Negative) Urine Ketones 4+ H (Negative) Ur Squamous Epith Cells 26 H (0-4) /hpf Urine Bacteria Rare H (None) /hpf Urine Mucus Moderate H (None) /hpf Assessment and Plan Assessment: Acute gastroenteritis Check Covid Aggressive IV fluid hydration with saline Pain control Symptomatic control of nausea vomiting Patient has elevated lipase and bilirubin, gallbladder ultrasound negative Patient denies any alcohol abuse Monitor vital signs History of GERD PPI Reported blood in vomiting most likely secondary to irritation from repeated retching Full code DVT prophylaxis heparin subcu 3 times a day Anticipated length of stay less than 2 midnights
[2021-10-29 06:27] VITALS: BP 114/63; PULSE 60; RESP 18; TEMP 98
[2021-10-29] MEDS ORDERED: HEPARIN SODIUM,PORCINE/PF 5,000 UNIT/0.5 ML SYRINGE SQ SCH (08:00)
[2021-10-29 08:38] LABS: HCT 35.9 % (34.0-46.0); HGB 12.5 gm/dL (11.4-16.0); MCH 30.9 pg (25.0-35.0); MCHC 34.7 g/dL (31.0-37.0); MCV 89.3 fL (80.0-100.0); Platelet Count 259 k/uL (150-450); RBC 4.02 m/uL (3.80-5.40); WBC 7.3 k/uL (3.8-10.6)
[2021-10-29 08:53] LABS: ALT 11 U/L (4-34); AST 15 U/L (14-36); African American GFR (CKD) >90 (>60 ml/min/1.73 sqM); Albumin 3.5 g/dL (3.5-5.0); Albumin/Globulin Ratio 1.3; Alkaline Phosphatase 43 U/L (38-126); Anion Gap 6 mmol/L; Blood Urea Nitrogen 9 mg/dL (7-17); Calcium 7.7 mg/dL (8.4-10.2); Carbon Dioxide 25 mmol/L (22-30); Chloride 106 mmol/L (98-107); Globulin 2.7 g/dL; Glucose 91 mg/dL (74-99); Lipase 736 U/L (23-300); Magnesium 2.1 mg/dL (1.6-2.3); Non-African American GFR(CKD) >90 (>60 ml/min/1.73 sqM); Potassium 3.5 mmol/L (3.5-5.1); Sodium 137 mmol/L (137-145); Total Bilirubin 1.6 mg/dL (0.2-1.3); Total Protein 6.2 g/dL (6.3-8.2)
[2021-10-29] MEDS ORDERED: PANTOPRAZOLE 40 MG/10 ML VIAL IV SCH (09:00)
--- NOTE | 2021-10-29 09:43 | P.DS ---
Providers Date of admission: 10/29/21 00:51 Expected date of discharge: 10/29/21 Attending physician: Song Quiroz MD Primary care physician: Jeremiah Long [facility] Course: Discharge Diagnosis: Acute gastroenteritis, resolved GERD Cannabis use Hospital Course: Patient is a very pleasant 31-year-old female with no significant past medical history. She presented to the emergency department secondary to concerns of dehydration after a reported 5 days of intractable nausea vomiting and diarrhea. In the emergency department patient was seen and fully evaluated she was found to have hyponatremia with sodium of 134, hypochloremia with chloride of 96, and hypokalemia with potassium of 3.4. In addition patient had an elevated total bili of 1.7, elevated amylase of 164, an elevated lipase of 593. Urinalysis was negative for blood or infection. Abdominal ultrasound negative for acute abnormality showing no gallstones or dilated ducts and no focal liver deficits. Patient was admitted under our services and monitored overnight. Patient was treated with antiemetics and generous IV hydration. Upon assessment this morning patient reports feeling 100% better. She reports she has not had any further episodes of vomiting or diarrhea since initially receiving antiemetic last night and feels great after receiving IV hydration. Oral challenge was performed. Patient tolerated oral intake well with clear liquids and crackers and continued to deny having any further episodes of nausea, vomiting, abdominal pain, or further episodes of diarrhea. Repeat labs revealed resolution of hypokalemia, hyponatremia, and hypochloremia. Vital signs unremarkable. Patient medically stable for discharge at this time. Patient seen and examined at bedside. Vital signs reviewed and stable. General: Nontoxic, no distress and appears stated age. Derm: Skin warm and dry, normal coloration for ethnicity. Head: Atraumatic, normocephalic and symmetric. Eyes: EOMs intact, no lid lag, and anicteric sclera Mouth: no lip lesions, mucus membranes moist Cardiovascular: regular rate and rhythm with normal S1S2, no murmur, positive posterior tibial pulses bilaterally, and cap refill < 2 seconds. Lungs: Respirations even, regular, and unlabored on room air. Lungs CTA bilaterally, no rhonchi, no rales, no wheezing, and no accessory muscle usage. Abdominal: soft, nontender to palpation, no guarding, no appreciable organomegaly Ext: ROM intact. No gross muscle atrophy, no edema, no contractures Neuro: Speech clear, face symmetrical and CN II-XII grossly intact with no noted focal neuro deficits Psych: Alert and oriented to person, place, time, and situation. Appropriate and pleasant affect. A total of 35 minutes of time were spent preparing this complex discharge summary. I reviewed the documentation as provided by the YISSEL above, who is the original author of this note. I agree with the documented assessment and plan, with the following changes: None Patient Condition at Discharge: Good Plan - Discharge Summary Discharge Rx Participant: No New Discharge Prescriptions: New Ondansetron Odt [Zofran Odt] 4 mg PO Q8HR PRN #30 tab PRN Reason: Nausea And Vomiting Discharge Medication List Ondansetron Odt [Zofran Odt] 4 mg PO Q8HR PRN #30 tab 10/29/21 [Rx] Follow up Appointment(s)/Referral(s): Blake Long MD [Primary Care Provider] - 1-2 days Patient Instructions/Handouts: Diet for Stomach Ulcers and Gastritis (ED), Gastroenteritis (DC) Activity/Diet/Wound Care/Special Instructions: Activity: As tolerated. Diet: Recommend continuing BRAT diet consisting of eating foods that are bland and ea sy to digest such as bananas, rice, applesauce, and toast. Progress your diet as you tolerate over the next couple days, but keep in mind greasy and heavy foods may be hard on your stomach and result in recurrent nausea/vomiting. Special Instructions: Thank you for allowing us to participate in your care, it was truly a pleasure having you for our patient!!! Discharge Disposition: HOME SELF-CARE
== END 2021-10-29 10:02 | disposition home or self-care (01) ==
LOC: EC 20:59 → 6NMEDSUR 10-29 00:51
PROVIDERS: ADMIT Internal Medicine; ATTEND Internal Medicine
DX: K52.9 Noninfective gastroenteritis and colitis, unspecified (principal); K85.90 Acute pancreatitis without necrosis or infection, unspecified; K21.9 Gastro-esophageal reflux disease without esophagitis; E87.1 Hypo-osmolality and hyponatremia; E87.8 Other disorders of electrolyte and fluid balance, not elsewhere classified; E87.6 Hypokalemia; Z20.822 Contact with and (suspected) exposure to COVID-19; E86.0 Dehydration; F17.200 Nicotine dependence, unspecified, uncomplicated; Z80.3 Family history of malignant neoplasm of breast; Z83.3 Family history of diabetes mellitus
CPT/HCPCS: 96376; 96361 ×2; 96374; 96375 ×2; 99285; 36415; 80053 ×2; 82150; 83605; 83690 ×2; 83735 ×2; 84100; 85025; 85027; 81001; 81025; 87635; 76705; G0378; J0780; J2405; C9113 ×2

== ENCOUNTER → 2022-02-06 | Outpatient (CLI) | payer OTHER ==
--- NOTE | 2022-02-06 14:55 | US ---
EXAMINATION TYPE: Transabdominal DATE OF EXAM: 02/06/2022 2:07 PM COMPARISON: NONE CLINICAL HISTORY: Z36.89 Confirm age/viability. EXAM PERFORMED: Transabdominal (TA) EXAM MEASUREMENTS: GESTATIONAL AGE / DATING Physician Established: (8 weeks/6 days) EDC: 09/12/2022 Dates by LMP: LMP unknown Dates by First Scan: No previous this is first scan Dates by Current Scan for: ( 9 weeks/1 days) EDC: 09/10/2022 MATERNAL ANATOMY Uterus: 10.6 x 5.4 x 6.7cm Right Ovary: 3.8 x 2.0 x 1.7cm Left Ovary: 3.2 x 1.7 x 2.0cm Post CDS / Adnexa: wnl Presence of free fluid: no Presence of corpus luteal cyst: not seen Presence of subchorionic bleed: no GESTATION / SURVEY CRL: 2.5cm (9 weeks/1 days) Yolk Sac (normal less than 6mm): 4.7mm Heart Rate: 179 bpm Rhythm: Normal IUP: Viable IUP IMPRESSION: Single viable intrauterine .
== END | disposition home or self-care (01) ==
LOC: RADUSWWP 13:41
PROVIDERS: ATTEND Obstetrics & Gynecology
DX: Z36.89 Encounter for other specified antenatal screening (principal); Z3A.09 9 weeks gestation of pregnancy
CPT/HCPCS: 76801

== ENCOUNTER 2022-02-08 13:25 | Emergency (ER) | payer OTHER ==
[2022-02-08 13:32] VITALS: TEMP 98.2
[2022-02-08] MEDS ORDERED: SODIUM CHLORIDE 0.9% 2,000 ML IV STA (13:39)
[2022-02-08] MEDS ORDERED: ONDANSETRON 4 MG/2 ML VIAL IVP STA (13:39)
--- NOTE | 2022-02-08 13:54 | ED ---
Nausea/Vomiting/Diarrhea HPI - General Chief complaint: Nausea/Vomiting/Diarrhea Stated complaint: 9 wks preg/vomiting Time Seen by Provider: 02/08/22 13:27 Source: patient Mode of arrival: ambulatory Limitations: no limitations - History of Present Illness Initial comments: Who presents to the emergency department with a chief complaint of nausea and vo miting. Patient states the nausea and vomiting started 3 days ago. Patient states she has experienced morning sickness during this however this feels different because she has not been able to keep food or water down at all. Patient reports upper abdominal pain which she states is from consistent vomiting. Admits to chills. She denies upper respiratory symptoms, shortness of breath, chest pain, diarrhea, burning with urination, and blood in the urine, vaginal bleeding, vaginal discharge. Denies recent sick contacts. Her OB is Dr. Renteria. Patient states she had a normal ultrasound last week. - Related Data Previous Rx's Medication Instructions Recorded Ondansetron Odt [Zofran Odt] 4 mg PO Q8HR PRN #30 tab 10/29/21 Doxylamine Succinate/Vit B6 2 tab PO HS PRN #14 tab 02/08/22 [Ezio Villanueva 10-10 mg Tablet] Metoclopramide [Reglan] 10 mg PO TID PRN #21 tab 02/08/22 Ondansetron Odt [Zofran Odt] 4 mg PO Q8HR PRN #21 tab 02/08/22 Allergies Allergy/AdvReac Type Severity Reaction Status Date / Time No Known Allergies Allergy Verified 02/08/22 13:32 Review of Systems ROS Statement: Those systems with pertinent positive or pertinent negative responses have been documented in the HPI. ROS Other: All systems not noted in ROS Statement are negative. Past Medical History Past Medical History: No Reported History History of Any Multi-Drug Resistant Organisms: None Reported Past Surgical History: No Surgical Hx Reported Past Anesthesia/Blood Transfusion Reactions: No Reported Reaction Past Psychological History: No Psychological Hx Reported Smoking Status: Never smoker Past Alcohol Use History: Occasional Past Drug Use History: Marijuana - Past Family History Father History Unknown: Yes Family Medical History: Diabetes Mellitus Mother History Unknown: Yes Family Medical History: Cancer Additional Family Medical History / Comment(s): from breast cancer General Exam Limitations: no limitations General appearance: alert, in no apparent distress Head exam: Present: atraumatic, normocephalic, normal inspection Eye exam: Present: normal appearance, PERRL, EOMI. Absent: scleral icterus, conjunctival injection, periorbital swelling ENT exam: Present: mucous membranes dry. Absent: mucous membranes moist Respiratory exam: Present: normal lung sounds bilaterally. Absent: respiratory distress, wheezes, rales, rhonchi, stridor Cardiovascular Exam: Present: regular rate, normal rhythm, normal heart sounds. Absent: systolic murmur, diastolic murmur, rubs, gallop, clicks GI/Abdominal exam: Present: soft, normal bowel sounds. Absent: distended, tenderness, guarding, rebound, rigid Neurological exam: Present: alert, oriented X3, CN II-XII intact Psychiatric exam: Present: normal affect, normal mood Skin exam: Present: warm, dry, intact, normal color. Absent: rash Course Vital Signs 02/08/22 13:30 Temperature 98.2 F Pulse Rate 78 Respiratory 16 Rate Blood Pressure 118/87 O2 Sat by Pulse 99 Oximetry Medical Decision Making - Medical Decision Making This is a 31-year-old female at 9 weeks who presents with trouble nausea and vomiting. Thorough history and examination were performed. Patient appears very nauseous during my exam. Mucous membranes are dry. She is hemodynamically stable. Afebrile. The abdomen is soft and nontender. Patient denies vaginal bleeding. Does admit to some upper abdominal pain which she believes is due to consistent vomiting. I will obtain laboratory studies and ultrasound. Laboratory studies significant for mildly elevated white blood cells at 13.4, likely a stress reaction. There is a anion gap metabolic acidosis, CO2 at 17 and anion gap at 17, reflecting dehydration. Urinalysis shows 4+ ketones. ultrasound shows a single viable intrauterine . COVID-19 and influenza A/B are not detected. Patient received large fluid bolus and Zofran. She did not have further episodes of vomiting in the emergency department however patient did continue to feel nauseous. Reglan was given which improved symptoms. With stable vital signs, ability to tolerate oral intake, and improvement of symptoms, patient will be discharged with strict return parameters. Patient states her OB is comfortable with her taking Zofran as he has offered it to her before. Patient will be discharged with Reglan and Zofran for her to take during the day. She will also be discharged with Diclegus. Patient and I discussed [id number] vitamin B6 and Unisom if she is unable to afford the Diclegus. Patient and I discussed introducing soft liquids and Gatorade for calorie intake. Patient to follow-up with her OB on Thursday. She will return if experiences new, concerning, or worsening symptoms. She verbalizes understanding and is agre eable to this plan. Dr. Reyes is my attending. - Lab Data Result diagrams: 02/08/22 13:49 02/08/22 13:49 Lab Results 02/08/22 02/08/22 02/08/22 Range/Units 13:42 13:42 13:49 WBC 13.4 H (3.8-10.6) k/uL RBC 4.47 (3.80-5.40) m/uL Hgb 13.6 (11.4-16.0) gm/dL Hct 39.3 (34.0-46.0) % MCV 87.9 (80.0-100.0) fL MCH 30.4 (25.0-35.0) pg MCHC 34.5 (31.0-37.0) g/dL RDW 12.1 (11.5-15.5) % Plt Count 376 (150-450) k/uL MPV 8.0 Neutrophils % 90 % Lymphocytes % 7 % Monocytes % 2 % Eosinophils % 0 % Basophils % 0 % Neutrophils # 12.0 H (1.3-7.7) k/uL Lymphocytes # 1.0 (1.0-4.8) k/uL Monocytes # 0.2 (0-1.0) k/uL Eosinophils # 0.1 (0-0.7) k/uL Basophils # 0.0 (0-0.2) k/uL Sodium (137-145) mmol/L Potassium (3.5-5.1) mmol/L Chloride (98-107) mmol/L Carbon Dioxide (22-30) mmol/L Anion Gap mmol/L BUN (7-17) mg/dL Creatinine (0.52-1.04) mg/dL Est GFR (CKD-EPI)AfAm (>60 ml/min/1.73 sqM) Est GFR (CKD-EPI)NonAf (>60 ml/min/1.73 sqM) Glucose (74-99) mg/dL Calcium (8.4-10.2) mg/dL Total Bilirubin (0.2-1.3) mg/dL AST (14-36) U/L ALT (4-34) U/L Alkaline Phosphatase (38-126) U/L Total Protein (6.3-8.2) g/dL Albumin (3.5-5.0) g/dL Lipase (23-300) U/L Urine Color Urine Appearance (Clear) Urine pH (5.0-8.0) Ur Specific [place] (1.001-1.035) Urine Protein (Negative) Urine Glucose (UA) (Negative) Urine Ketones (Negative) Urine Blood (Negative) Urine Nitrite (Negative) Urine Bilirubin (Negative) Urine Urobilinogen (<2.0) mg/dL Ur Leukocyte Esterase (Negative) Urine RBC (0-5) /hpf Urine WBC (0-5) /hpf Ur Squamous Epith Cells (0-4) /hpf Hyaline Casts (0-2) /lpf Urine Mucus (None) /hpf Coronavirus (PCR) Not Detected (Not Detectd) Influenza Type A RNA Not Detected (Not Detectd) Influenza Type B (PCR) Not Detected (Not Detectd) 02/08/22 02/08/22 Range/Units 13:49 13:49 WBC (3.8-10.6) k/uL RBC (3.80-5.40) m/uL Hgb (11.4-16.0) gm/dL Hct (34.0-46.0) % MCV (80.0-100.0) fL MCH (25.0-35.0) pg MCHC (31.0-37.0) g/dL RDW (11.5-15.5) % Plt Count (150-450) k/uL MPV Neutrophils % % Lymphocytes % % Monocytes % % Eosinophils % % Basophils % % Neutrophils # (1.3-7.7) k/uL Lymphocytes # (1.0-4.8) k/uL Monocytes # (0-1.0) k/uL Eosinophils # (0-0.7) k/uL Basophils # (0-0.2) k/uL Sodium 136 L (137-145) mmol/L Potassium 3.8 (3.5-5.1) mmol/L Chloride 102 (98-107) mmol/L Carbon Dioxide 17 L (22-30) mmol/L Anion Gap 17 mmol/L BUN 10 (7-17) mg/dL Creatinine 0.51 L (0.52-1.04) mg/dL Est GFR (CKD-EPI)AfAm >90 (>60 ml/min/1.73 sqM) Est GFR (CKD-EPI)NonAf >90 (>60 ml/min/1.73 sqM) Glucose 119 H (74-99) mg/dL Calcium 10.0 (8.4-10.2) mg/dL Total Bilirubin 1.6 H (0.2-1.3) mg/dL AST 17 (14-36) U/L ALT 14 (4-34) U/L Alkaline Phosphatase 59 (38-126) U/L Total Protein 8.1 (6.3-8.2) g/dL Albumin 5.0 (3.5-5.0) g/dL Lipase 124 (23-300) U/L Urine Color Yellow Urine Appearance Clear (Clear) Urine pH 6.0 (5.0-8.0) Ur Specific [place] 1.036 H (1.001-1.035) Urine Protein 2+ H (Negative) Urine Glucose (UA) Negative (Negative) Urine Ketones 4+ H (Negative) Urine Blood Negative (Negative) Urine Nitrite Negative (Negative) Urine Bilirubin Negative (Negative) Urine Urobilinogen 3.0 (<2.0) mg/dL Ur Leukocyte Esterase Negative (Negative) Urine RBC 1 (0-5) /hpf Urine WBC 1 (0-5) /hpf Ur Squamous Epith Cells 6 H (0-4) /hpf Hyaline Casts 1 (0-2) /lpf Urine Mucus Few H (None) /hpf Coronavirus (PCR) (Not Detectd) Influenza Type A RNA (Not Detectd) Influenza Type B (PCR) (Not Detectd) Disposition Clinical Impression: Nausea and vomiting during prior to 22 weeks gestation Disposition: HOME SELF-CARE Condition: Fair Instructions (If sedation given, give patient instructions): Nausea and Vomiting in (ED) Additional Instructions: Take medication as directed. You may take Reglan and Zofran together if your nausea is severe. The Diclegus will be taken at night. If your insurance does not cover the medication and is too expensive for you to afford, buy [id number] Unisom and vitamin B6. These two over the counter medications when taken together are analogous to Diclegus. Do not drive or operate machinery while taking Unisom as it is a sleep aid so it can make you sleepy. Increase fluid intake as tolerated. If you are unable to eat soft and dry foods please drink gatorade so you have a calorie intake. Follow-up with your OB in 1-2 days. Return to the emergency department if you experience new, concerning, or worsening symptoms. Prescriptions: Doxylamine Succinate/Vit B6 [Diclegis Dr 10-10 mg Tablet] 2 tab PO HS PRN #14 tab PRN Reason: Nausea Metoclopramide [Reglan] 10 mg PO TID PRN #21 tab PRN Reason: Nausea Ondansetron Odt [Zofran Odt] 4 mg PO Q8HR PRN #21 tab PRN Reason: Nausea Is patient prescribed a controlled substance at d/c from ED?: No Referrals: Carlos Alberto Goldman MD [Primary Care Provider] - 1-2 days Time of Disposition: 16:23
[2022-02-08] MEDS: ACETAMINOPHEN TAB 500 MG TAB PO STA ×2 (13:56→13:58)
[2022-02-08 14:01] LABS: Appearance,Urine Clear (Clear); Bilirubin,Urine Negative (Negative); Blood,Urine Negative (Negative); Color,Urine Yellow; Glucose,Urine (UA) Negative (Negative); Hyaline Casts,Urine 1 /lpf (0-2); Ketones,Urine 4+ (Negative); Leukocyte Esterase,Urine Negative (Negative); Mucus,Urine Few /hpf; Nitrite,Urine Negative (Negative); Protein,Urine 2+ (Negative); RBC,Urine 1 /hpf (0-5); Specific Gravity,Urine 1.036 (1.001-1.035); Squamous Epithelial Cell,Urine 6 /hpf (0-4); WBC,Urine 1 /hpf (0-5)
[2022-02-08 14:06] LABS: Basophils % (A) 0 %; Eosinophils # (A) 0.1 k/uL (0-0.7); Eosinophils % (A) 0 %; HCT 39.3 % (34.0-46.0); HGB 13.6 gm/dL (11.4-16.0); Lymphocytes % (A) 7 %; MCH 30.4 pg (25.0-35.0); MCHC 34.5 g/dL (31.0-37.0); MCV 87.9 fL (80.0-100.0); Monocytes # (A) 0.2 k/uL (0-1.0); Monocytes % (A) 2 %; Neutrophils % (A) 90 %; Platelet Count 376 k/uL (150-450); RBC 4.47 m/uL (3.80-5.40); RDW 12.1 % (11.5-15.5); WBC 13.4 k/uL (3.8-10.6)
[2022-02-08 14:08] LABS: ALT 14 U/L (4-34); AST 17 U/L (14-36); African American GFR (CKD) >90 (>60 ml/min/1.73 sqM); Alkaline Phosphatase 59 U/L (38-126); Anion Gap 17 mmol/L; Blood Urea Nitrogen 10 mg/dL (7-17); Carbon Dioxide 17 mmol/L (22-30); Chloride 102 mmol/L (98-107); Glucose 119 mg/dL (74-99); Lipase 124 U/L (23-300); Non-African American GFR(CKD) >90 (>60 ml/min/1.73 sqM); Potassium 3.8 mmol/L (3.5-5.1); Sodium 136 mmol/L (137-145); Total Bilirubin 1.6 mg/dL (0.2-1.3); Total Protein 8.1 g/dL (6.3-8.2)
--- NOTE | 2022-02-08 14:35 | US ---
EXAMINATION TYPE: Transabdominal DATE OF EXAM: 02/08/2022 2:22 PM COMPARISON: US 2 days ago CLINICAL HISTORY: abdominal pain, likely from consistent vomiting. N&V EXAM PERFORMED: Transabdominal (TA) EXAM MEASUREMENTS: GESTATIONAL AGE / DATING Physician Established: Not yet established Dates by LMP: (9 weeks/1 days) EDC: 09/12/2022 Dates by First Scan: (9 weeks/3 days) EDC: 09/10/2022 Dates by Current Scan for: (9 weeks/2 days) EDC: 09/11/2022 MATERNAL ANATOMY Uterus: 10.7 x 5.4 x 6.7 cm Right Ovary: 2.6 x 2.4 x 3.1 cm Left Ovary: 2.6 x 2.0 x 3.1 cm Post CDS / Adnexa: wnl Presence of free fluid: No Presence of corpus luteal cyst: Right Ovary= 1.8 x 1.8 x 1.7 cm Presence of subchorionic bleed: No GESTATION / SURVEY CRL: 2.6 cm (9 weeks/2 days) MSD: wnl Heart Rate: 178 bpm Rhythm: Normal the ultrasound gestational age is 9 weeks IUP: Viable IUP Single, viable IUP IMPRESSION: The ultrasound gestational age is 9 weeks and 2 days. No complicating process seen.
[2022-02-08] MEDS ORDERED: METOCLOPRAMIDE 5 MG/ML 2 ML VIAL IVP STA (15:34)
[2022-02-08 16:38] VITALS: BP 136/78; PULSE 80; RESP 18
== END 2022-02-08 16:38 | disposition home or self-care (01) ==
LOC: EC 13:25
DX: O21.9 Vomiting of pregnancy, unspecified (principal); Z20.822 Contact with and (suspected) exposure to COVID-19; Z3A.22 22 weeks gestation of pregnancy
CPT/HCPCS: 36415; 80053; 83690; 85025; 81001; 87502; 87635; 76801; 99284; 96374; 96375; 96361; J2765; J2405